=== PATIENT | female | born 1980 | race African-American/Black ===

== ENCOUNTER 2024-01-17 07:43 | Outpatient (CLI) | payer OTHER ==
[~2024-01-17 07:43] MED LIST: DICLOFENAC POTA50 MG PO
[2024-01-17 09:28] LABS: FREE TRIODOTIRONINE 2.17 pg/ml (2.18-3.98); T4 FREE 0.84 NG/ML (0.76-1.46); TSH 1.32 uIU/mL (0.358-3.74)
[2024-01-18 09:10] LABS: FOLLICLE STIMULATING HORMONE 49.7 mIU/mL (.); LEUTEINIZING HORMONE 39.4 mIU/mL (.); PROGESTERONA 0.3 ng/mL (.)
== END 2024-01-17 07:49 | disposition home or self-care (01) ==
LOC: LAB 07:43
DX: E03.9 Hypothyroidism, unspecified (principal)

== ENCOUNTER 2025-01-02 08:11 | Outpatient (CLI) | payer OTHER | END 2025-01-02 08:18 | disposition home or self-care (01) | LOC: SONOGRAMA 08:11 | PROVIDERS: ATTEND Internal Medicine Gastroenterology | DX: R16.1 Splenomegaly, not elsewhere classified (principal); E03.8 Other specified hypothyroidism ==

== ENCOUNTER 2025-01-19 07:51 | Outpatient (CLI) | payer OTHER ==
[2025-01-19 09:29] LABS: BASO % 1.7 % (0.1-1.2); EOS # 0.34 (0.04-0.54); EOS % 6.6 % (0.7-7.0); LYMPH # 1.41 (1.18-3.74); LYMPH % 27.3 % (19.3-53.1); MEAN PLATELET VOLUME 10.80 fl (9.4-12.4); MONO # 0.42 (0.24-0.82); MONO % 8.1 % (4.7-12.5); NEUT # 2.89 (1.56-6.13); NEUT % 56.1 % (34.0-71.1); RED CELL DISTRIBUTION WIDTH 13.8 % (11.6-14.4)
[2025-01-19 09:55] LABS: ALT/SGPT 28.0 U/L (12-78); AST/SGOT 23.0 U/L (15-37); BILIRUBIN TOTAL 0.33 mg/dL (0.3-1.2); BUN CREA RATIO 15.0 (7.0-25.0); CHOL HDL RATIO 2.4 (0-5.0); CREATININE SERUM 0.66 mg/dL (0.55-1.02); GFR 96.41; GLOBULINA 3.7 G/DL (2.4-3.5); GLUCOSE FASTING 72.0 mg/dL (65-100); HDL 84.0 mg/dl (40-60); LDL 97.0 mg/dl (0-130); OSMOLALITY SERUM 281.0 MOSM/KG (275-295); T4 FREE 0.68 NG/ML (0.76-1.46); T4 TOTAL 6.77 UG/DL (4.8-13.9); TSH 1.1 uIU/mL (0.358-3.74); VLDL 21.0 (0-39)
[2025-01-23 09:08] LABS: ANTI THYROID PEROXIDASE < 9 IU/mL (0-34); CA 125 4.6 U/mL (0.0-38.1); ESTRADIOL SERUM < 5.0 pg/mL (.)
== END 2025-01-19 07:55 | disposition home or self-care (01) ==
LOC: LAB 07:51
DX: E01.8 Other iodine-deficiency related thyroid disorders and allied conditions (principal); E16.2 Hypoglycemia, unspecified; N39.0 Urinary tract infection, site not specified; E78.2 Mixed hyperlipidemia; E56.9 Vitamin deficiency, unspecified; E55.9 Vitamin D deficiency, unspecified; R97.1 Elevated cancer antigen 125 [CA 125]; R53.1 Weakness; E66.01 Morbid (severe) obesity due to excess calories; D68.9 Coagulation defect, unspecified; N95.1 Menopausal and female climacteric states; R68.82 Decreased libido; E03.9 Hypothyroidism, unspecified